=== PATIENT | male | born 1970 | race Caucasian/White ===

== ENCOUNTER 2018-06-24 17:15 | Emergency (ER) | payer OTHER ==
[2018-06-24 17:24] VITALS: RESP 18
[2018-06-24 19:07] VITALS: BP 155/90; TEMP 98.7
[2018-06-24] MEDS ORDERED: SODIUM CHLORIDE 0.9% 1,000 ML IV STA (19:50)
--- NOTE | 2018-06-24 19:56 | ED ---
General Adult HPI - General Chief complaint: Extremity Injury, Lower Stated complaint: RT KNEE INJURY Source: patient, RN notes reviewed, old records reviewed Mode of arrival: ambulatory Limitations: no limitations - History of Present Illness Initial comments: 48-year-old male patient presents to ED with swollen right knee. Patient was working at his job on his hands and knees without kneepads stay. While working , patient states that his knee felt "squishy". Patient rolled up jeans andthat he hasn't some swelling noted around the patella of his knee. Patient is not having any pain. Patient ambulatory. Knees nontender. He is not warm. Patient has not experiencing any fevers chills, nausea vomiting diarrhea. Patient denies using any IV drugs. Systemic: Pt denies fatigue, myalgia, fever/chills, rash. Pt denies weakness, night sweats, weight loss. Neuro: Pt denies headache, visual disturbances, syncope or pre-syncope. HEENT: Pt denies ocular discharge or irritation, otalgia, rhinorrhea, pharyngitis or notable lymphadenopathy. Cardiopulmonary: Pt denies chest pain, SOB, heart palpitations, dyspnea on exertion. Abdominal/GI: Pt denies abdominal pain, n/v/d. : Pt denies dysuria, burning w/ urination, frequency/urgency. Denies new onset urinary or bowel incontinence. MSK: Pt denies myalgia, loss of strength or function in extremities. - Related Data Allergies Allergy/AdvReac Type Severity Reaction Status Date / Time No Known Allergies Allergy Verified 06/24/18 17:21 Review of Systems ROS Statement: Those systems with pertinent positive or pertinent negative responses have been documented in the HPI. ROS Other: All systems not noted in ROS Statement are negative. Past Medical History Past Medical History: Hyperlipidemia History of Any Multi-Drug Resistant Organisms: None Reported Additional Past Surgical History / Comment(s): cyst removal from R shoulder Past Psychological History: No Psychological Hx Reported Smoking Status: Current every day smoker Past Alcohol Use History: None Reported Past Drug Use History: None Reported General Exam - General Exam Comments Initial Comments: Constitutional: NAD, AOX3, Pt has pleasant affect. HEENT: NC/AT, trachea midline, neck supple, no lymphadenopathy. Posterior pharynx non erythematous, without exudates. External ears appear normal, without discharge. Mucous membranes moist. Eyes PERRLA, EOM intact. There is no scleral icterus. No pallor noted. Cardiopulmonary: RRR, no murmurs, rubs or gallops, no JVD noted. HR 90 at DC. Lungs CTAB in anterior and posterior massey. No peripheral edema. Abdominal exam: Abdomen soft and non-distended. Abdomen non-tender to palpation in all 4 quadrants. Bowel sounds active in LLQ. No hepatosplenomegaly. Neuro: CN II-XII grossly intact. MSK: Mild effusion noted peripatellar on R knee. Knee is not warm, non tender, pt is ambulatory. Knee is non erythematous. Pt has full active ROM of knee. Pt is ambulatory without difficulty. Dorsalis pedis and posterior tibialis pulse + 2 bilaterally. Limitations: no limitations Course Vital Signs 06/24/18 06/24/18 06/24/18 17:21 17:59 19:06 Temperature 98.5 F 98.8 F 98.7 F Pulse Rate 122 H 113 H 115 H Respiratory 18 18 Rate Blood Pressure 133/82 155/90 O2 Sat by Pulse 97 97 Oximetry Medical Decision Making - Medical Decision Making 48-year-old male patient presents to ED with swollen right knee. Patient was working at his job on his hands and knees without kneepads stay. While working , patient states that his knee felt "squishy". Patient rolled up jeans andthat he hasn't some swelling noted around the patella of his knee. Patient is not having any pain. Patient ambulatory. Knees nontender. He is not warm. Patient has not experiencing any fevers chills, nausea vomiting diarrhea. Patient denies using any IV drugs. Musculoskeletal exam displayed Mild effusion noted peripatellar on R knee. Knee is not warm, non tender, pt is ambulatory. Knee is non erythematous. Pt has full active ROM of knee. Pt is ambulatory without difficulty. Dorsalis pedis and posterior tibialis pulse +2 bilaterally. Other systems examined including cardiopulmonary, abdominal, neuro , HEENT did not display acute pathology. Patient is moderately tachycardic upon presentation. HR normalized before DC. An EKG was done that displayed sinus tachycardia, no concerns for acute ischemia. Patient denies chest pain, fevers breath, pleuritic chest pain, headache, changes in vision, dizziness. Patient discharged. Patient to follow-up with PCP in 1-2 days. Educated patient about pathology of bursitis, explained to pt supportive treatment measures. Patient to return to ED if any signs symptoms develop including pain in the, fever chills, nausea vomiting diarrhea, pain with ambulation, any other new signs or symptoms. [facility] form filled out. Case discussed with Dr. Castro. Disposition Clinical Impression: Knee bursitis Disposition: HOME SELF-CARE Condition: Good Instructions: Knee Bursitis (ED) Additional Instructions: Patient to adhere to previously discussed treatment plan and will take medication(s) as directed. Patient to follow up with PCP in 1-2 days. Patient to return to ED if symptoms do not improve. Is patient prescribed a controlled substance at d/c from ED?: No Referrals: Steffen Perez MD [Primary Care Provider] - 1-2 days Time of Disposition: 19:56
[2018-06-24 20:14] VITALS: PULSE 90
--- NOTE | 2018-06-24 20:27 | ED ---
Medical Decision Making - EKG Data -: EKG Interpreted by Me EKG Comments: Sinus tachycardia. Ventricular rate 108, [place] interval 140, QRS 90, QT/QTC 322/ 431. No concern for acute ischemia. Disposition Clinical Impression: Knee bursitis Disposition: HOME SELF-CARE Condition: Good Instructions: Knee Bursitis (ED) Additional Instructions: Patient to adhere to previously discussed treatment plan and will take medication(s) as directed. Patient to follow up with PCP in 1-2 days. Patient to return to ED if symptoms do not improve. Is patient prescribed a controlled substance at d/c from ED?: No Referrals: Steffen Perez MD [Primary Care Provider] - 1-2 days
== END 2018-06-24 20:23 | disposition home or self-care (01) ==
LOC: EC 17:15
DX: M70.51 Other bursitis of knee, right knee (principal); R00.0 Tachycardia, unspecified; M25.461 Effusion, right knee; F17.200 Nicotine dependence, unspecified, uncomplicated; Y93.89 Activity, other specified
CPT/HCPCS: 93005; 99284

== ENCOUNTER → 2018-06-27 | Outpatient (CLI) | payer OTHER ==
--- NOTE | 2018-06-27 15:00 | XR ---
EXAMINATION TYPE: XR knee complete RT DATE OF EXAM: 06/27/2018 COMPARISON: NONE HISTORY: Pain TECHNIQUE: Four views are submitted. FINDINGS: There is narrowing of the medial compartment knee joint with hypertrophic spurring. Osseous structure s are intact. No acute fracture seen. IMPRESSION: 1. No acute fracture or dislocation. 2. Osteoarthritis. Small amount of free fluid in the suprapatellar bursa correlate with MRI as clinic ally warranted.
== END ==
LOC: RADXRMAIN 14:40
PROVIDERS: ATTEND Emergency Medicine
DX: M17.11 Unilateral primary osteoarthritis, right knee (principal); R93.7 Abnormal findings on diagnostic imaging of other parts of musculoskeletal system

== ENCOUNTER → 2021-05-13 | Outpatient (CLI) | payer BC ==
--- NOTE | 2021-05-13 12:01 | P.STRESS ---
- Stress Test Note Stress Test Results/Findings: Exam Performed: stress echo exercise with con Exam Date: 05/13/21 Reason for Exam: syncope Height: 6 ft 2 in Weight: 208 kg Protocol: lee ann Stage: 3 Duration of Exercise: 9 min Resting Heart Rate: 89 Resting Blood Pressure: 131/89 Maximum Achieved Heart Rate: 158 Maximum Achieved Blood Pressure: 192/87 85% PMHR: 143 100% PMHR: 168 METS: 10.3 Technologist Comment: Stress Test Results/Findings: Baseline heart rate 89 beats a minute, Baseline blood pressure 131/89 mmHg Patient exercised on a Lee Ann protocol for 9 minutes Peak heart rate 156 beats a minute Peak blood pressure 192 87 mmHg Baseline twelve-lead EKG showed normal sinus rhythm with early repolarization abnormality inferolaterally No ECG ms for ischemia with exercise 2 ventricular couplets noted No sustained or nonsustained VT Baseline 2-D echo images were suboptimal Definity contrast was used Excellent augmentation of overall LV contractility without development of any wall motion abnormalities At recovery regional and global LV systolic function were normal Impression Good exercise capacity No ECG or echocardiographic evidence for ischemia
== END | disposition home or self-care (01) ==
LOC: RADECHMAIN 08:43
PROVIDERS: ATTEND Nurse Practitioner Gerontology
DX: R55 Syncope and collapse (principal)
CPT/HCPCS: 93225; 93226; 93351; Q9950